=== PATIENT | male | born 1990 | race Caucasian/White ===

== ENCOUNTER 2019-02-26 09:40 | Emergency (ER) | payer MEDICAID ==
[~2019-02-26] VITALS: Ht 175.3 cm; Wt 113.6 kg
[2019-02-26 09:48] VITALS: BP 175/94
--- NOTE | 2019-02-26 10:08 | NUR ---
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 PT REPORTS 10 EPISODES OF BROWN AND YELLOW EMESIS. EPIGASTRIC PAIN AT 5/10. NO DIARRHEA OR CONSTIPATION, LAST BM THIS MORNING. PT REPORTS EATING BBQ LAST NIGHT. ABDOMEN ROUND AND SOFT, BOWEL SOUNDS ACTIVE IN ALL 4 QUADRANTS. HYPERTENSIVE 175/94 AND TACHY AT 104. BED IS DOWN, LOCKED, BED RAIL X 1, ERMD TO SEE PT. MEDHX:DENIES RX:DENIES
[2019-02-26 10:23] LABS: APPEARANCE,URINE CLEAR (CLEAR); BILIRUBIN,URINE NEGATIVE (NEGATIVE); BLOOD, URINE TRACE-I (NEGATIVE); COLOR,URINE YELLOW (YELLOW); LEUKOCYTE ESTERASE ,URINE NEGATIVE (NEGATIVE); NITRITE, URINE NEGATIVE (NEGATIVE); UGLUCOSE NEGATIVE (NEGATIVE)
[2019-02-26 10:39] LABS: BARBITURATE, URINE NEG. ng/ml (NEG <=200); BENZODIAZEPINE, URINE NEG. ng/mL (NEG <=200); CANNABINOID, URINE NEG. ng/mL (NEG <=50); COCAINE, URINE NEG. ng/mL (NEG <=300); OPIATE, URINE NEG. ng/mL (NEG <=2000); PHENCYCLIDINE SCREEN,URINE NEG. ng/mL (NEG <=25)
[2019-02-26 10:46] LABS: RBC,URINE 0-5 /HPF (0-5)
[2019-02-26] MEDS ORDERED: NACL 0.9% 1,000 ML IV SCH (10:46)
[2019-02-26] MEDS ORDERED: NACL 0.9% 1,000 ML IV ONE (10:46)
[2019-02-26 10:47] LABS: WBC,URINE 0-5 /HPF (0-5)
[2019-02-26] MEDS ORDERED: METOCLOPRAMIDE 10 MG/2 ML INJ VIAL IVP ONE (10:50)
[2019-02-26] MEDS ORDERED: PROMETHAZINE 25 MG/ML VIAL IM ONE (10:50)
--- NOTE | 2019-02-26 10:53 | NUR ---
PT BEING TAKEN TO CT VIA WHEELCHAIR
[2019-02-26] MEDS ORDERED: ONDANSETRON 4 MG/2 ML VIAL ONE (11:10)
[2019-02-26 11:44] LABS: EOSINOPHILS % (AUTO) 0.1 % (0.0-4.0); HEMATOCRIT 45.5 % (36-52); HEMOGLOBIN 15.4 g/dL (12.0-18.0); LYMPHOCYTES % (AUTO) 7.7 % (20.5-51.1); MEAN CORPUSCULAR HEMOGLOBIN 29 pg (27-31); MEAN CORPUSCULAR HGB CONC 34 g/dL (33-37); MEAN CORPUSCULAR VOLUME 85.9 fL (80-94); MONOCYTES # (AUTO) 0.5 K/uL (0.8-1.0); NEUTROPHILS # (AUTO) 11.5 K/uL (1.8-7.7); NEUTROPHILS % (AUTO) 88.2 % (42.2-75.2); PLATELET COUNT (AUTO) 279 K/uL (140-450); RED CELL DISTRIBUTION WIDTH 13.7 % (11.6-13.7)
--- NOTE | 2019-02-26 11:57 | NUR ---
PT REPORTS PAIN 10/29. [id number]. RESTING WITH LIGHTS OFF.
[2019-02-26 11:59] LABS: ANION GAP 12.9 (8-16); ASPARTATE AMINOTRANSFERASE 23 U/L (15-37); CARBON DIOXIDE 24.7 mmol/L (21-32); CHLORIDE 106 mmol/L (98-107); CREATININE 0.9 mg/dL (0.7-1.3); GFR ARICAN-AMERICAN 128 mL/min (>90); GLUCOSE 129 mg/dL (74-106); POTASSIUM 3.6 mmol/L (3.5-5.1); SODIUM SERUM 140 mmol/L (136-145); TOTAL BILIRUBIN 0.4 mg/dL (0.0-1.0); UREA NITROGEN, BLOOD 11 mg/dL (7-18)
--- NOTE | 2019-02-26 12:16 | NUR ---
PT SLEEPING IN BED. AROUSABLE TO NAME. LIGHTS TURNED OFF FOR PT COMFORT.
[2019-02-26 12:22] LABS: AMYLASE 27 U/L (25-115); LIPASE 95 U/L (73-393)
--- NOTE | 2019-02-26 12:46 | NUR ---
Patient discharged with v/s stable. Written and verbal after care instructions given and explained. Patient alert, oriented and verbalized understanding of instructions. Ambulatory with steady gait. All questions addressed prior to discharge. ID band removed. Patient advised to follow up with PMD. Rx of compazine given. Patient educated on indication of medication including possible reaction and side effects. Opportunity to ask questions provided and answered.
[2019-02-26 12:47] VITALS: BP 129/87
[2019-02-26] MEDS ORDERED: ONDANSETRON 4 MG/2 ML VIAL IVP ONE (15:30)
== END 2019-02-26 12:46 | disposition home or self-care (01) ==
LOC: MED 09:40
DX: R11.10 Vomiting, unspecified (principal); R51 Headache; R42 Dizziness and giddiness
CPT/HCPCS: 36415; 70450; 80053; 80305; 81001; 82150; 82550; 83690; 85025; 96361; 96372; 96374; 96375; 99284; G0482; J2405; J2550; J2765; J7030

== ENCOUNTER 2019-12-09 13:54 | Emergency (ER) | payer MEDICAID ==
[~2019-12-09] VITALS: Ht 175.3 cm; Wt 111.1 kg
[2019-12-09 14:02] VITALS: BP 153/93
[2019-12-09] MEDS ORDERED: LIDOCAINE MPF 1% 5 ML ONE (14:09)
[2019-12-09] MEDS ORDERED: LIDOCAINE MPF 1% 10 MG/ML VIAL INJ ONE (14:20)
== END 2019-12-09 15:23 | disposition home or self-care (01) ==
LOC: MED 13:54
DX: S61.216A Laceration without foreign body of right little finger without damage to nail, initial encounter (principal); W45.8XXA Other foreign body or object entering through skin, initial encounter; Y93.89 Activity, other specified; Y92.89 Other specified places as the place of occurrence of the external cause; Y99.0 Civilian activity done for income or pay
CPT/HCPCS: 12001; 99282; J2001